=== PATIENT | female | born 2000 | race Caucasian/White ===

== ENCOUNTER → 2020-05-13 | Outpatient (CLI) | payer OTHER | LOC: COL.RAD 00:15 | DX: O00.202 Left ovarian pregnancy without intrauterine pregnancy (principal) ==

== ENCOUNTER 2024-01-29 01:45 | Inpatient (IN) | payer MEDICAID ==
[~2024-01-29] VITALS: Wt 77.7 kg
[2024-01-29] VITALS (45 sets, daily range): BP systolic 94–152; BP diastolic 55–95; PULSE 81–115; TEMP 98–99.1
[~2024-01-29 01:45] MED LIST: PRENATAL
--- NOTE | 2024-01-29 01:54 | NUR ---
Ambulatory to unit for labor assessment, accompanied by FOB and pt's mother. Pt reports "my water broke about an hour ago" Oriented to room, monitor, plan of care. SVE with +Amniotrace, free clear fuid, scan pink tinge noted on glove. -2 post.
[2024-01-29] MEDS ORDERED: LR & Oxytocin 500 ML IV SCH (02:45)
[2024-01-29] MEDS ORDERED: LR 1,000 ML IV PRN (02:45)
[2024-01-29] MEDS ORDERED: LR 1,000 ML IV SCH (02:45)
--- NOTE | 2024-01-29 03:25 | NUR ---
Off monitor, up to move around room, birthing ball provided.
[2024-01-29 03:34] LABS: BASO % 0.2 % (0.0-2.0); EOS # 0.1 K/mm3 (0.0-0.7); EOS % 0.9 % (0.0-4.0); GRAN # 6.2 K/mm3 (1.4-6.5); HEMOGLOBIN 11.6 g/dl (12.5-16.0); LYMPH # 2.2 K/mm3 (1.2-3.4); LYMPH % 21.8 % (20.0-51.0); MEAN CELL VOLUME 99 fl (80.0-100.0); MEAN CORPUSCULAR HEMOGLOBIN 35 pg (27-31); MEAN CORPUSCULAR HGB CONC 35 g/dl (33.0-37.0); MONO # 1.3 K/mm3 (0.1-0.6); PLATELET COUNT 242 K/mm3 (130-400); RED BLOOD COUNT 3.36 M/mm3 (4.10-5.30); REDCELL DISTRIBUTION WIDTH-CV 12.8 % (11.5-14.5)
[2024-01-29 03:36] LABS: HEMATOCRIT 33.4 % (37.0-47.0)
--- NOTE | 2024-01-29 04:40 | NUR ---
SVE with changes as noted. Pt reports "the contractions are little more pinchy". 0445 Off monitor for inttermittent monitoring
--- NOTE | 2024-01-29 06:24 | NUR ---
0621 Jose AUDIO VISUAL DESIGN ENGINEER updated that pt is requesting epidural at this time, G/P, hx, recent SVE, pt pain level. AUDIO VISUAL DESIGN ENGINEER states he will be bedside shortly.
--- NOTE | 2024-01-29 06:40 | NUR ---
PT REQUESTING EPIDURAL. IVFB STARTED
[2024-01-29] MEDS ORDERED: ROPivacaine PF 0.2% 200 ML IV ONE (07:00)
--- NOTE | 2024-01-29 08:04 | NUR ---
FILM COLOR TESTER AND RN BEDSIDE; PT TOLERATED PROCEDURE WELL.
--- NOTE | 2024-01-29 08:09 | NUR ---
PT UP TO VOID BEFORE EPIDURAL PLACEMENT. ANESTHESIA ARRIVES IN HOUSE.
--- NOTE | 2024-01-29 08:11 | NUR ---
ANESTHESIA BEDSIDE FOR EPIDURAL PLACEMENT. PT SITTING ON SIDE OF BED, RN X1 BEDSIDE.
--- NOTE | 2024-01-29 08:13 | NUR ---
PT SEMI FOWLERS WITH HIP WEDGE.
[2024-01-29] MEDS ORDERED: diphenhydrAMINE 50 MG/ML 1 ML VIAL IV PRN (09:00)
[2024-01-29] MEDS ORDERED: ePHEDrine 50 MG/10 ML VIAL IV PRN (09:00)
[2024-01-29] MEDS ORDERED: Ondansetron 4 MG/2 ML VIAL IV PRN (09:00)
[2024-01-29] MEDS ORDERED: diphenhydrAMINE 25 MG CAP PO PRN (09:00)
[2024-01-29] MEDS ORDERED: Naloxone 0.4 MG/ML VIAL IV PRN ×2 (09:00→17:00)
--- NOTE | 2024-01-29 11:18 | NUR ---
RN BEDSIDE ADJUSTING TOCO AND PALPATING ABDOMEN, HELPING PT WITH POSITION CHANGES
--- NOTE | 2024-01-29 11:56 | NUR ---
1150 BENNIE VIDES UPDATED ON RECENT SVE, CTX PATTERN, PITOCIN AT 2, FHTS. NO NEW ORDERS AT THIS TIME.
[2024-01-29] MEDS ORDERED: Loratadine 10 MG TAB PO PRN (16:30)
[2024-01-29] MEDS ORDERED: Magnes Hydrox (MOM) 80 MG/ML 30 ML CUP PO PRN (16:30)
--- NOTE | 2024-01-29 16:57 | NUR ---
ORDERS FROM BENNIE VIDES TO START PUSHING WITH PT. PT TO STIRRUJANIE AND RN BEDSIDE, EXPLAINING PUSHING PROCESS.
[2024-01-29] MEDS ORDERED: Tdap Vaccine 0.5 ML SYRINGE IM SCH (17:00)
[2024-01-29] MEDS ORDERED: Sennosides/Docusate 8.6-50 MG TAB PO SCH (17:00)
[2024-01-29] MEDS ORDERED: Acetaminophen 500 MG TAB PO SCH (17:00)
[2024-01-29] MEDS ORDERED: Measles/Mumps/Rubella Virus Vaccine Live w Diluent 0.5 ML VIAL SQ SCH (17:00)
[2024-01-29] MEDS ORDERED: Phenylephrine/Mineral Oil/Petrolatum 57 GM TUBE RC PRN (17:00)
[2024-01-29] MEDS ORDERED: oxyCODONE 5 MG TAB PO PRN (17:00)
[2024-01-29] MEDS ORDERED: Mag/Al Hydrox/Simeth Susp 30 ML CUP PO PRN (17:00)
[2024-01-29] MEDS ORDERED: Witch Hazel 50% Pads Bulk TUB TP PRN (17:00)
[2024-01-29] MEDS ORDERED: Ibuprofen 800 MG TAB PO SCH (17:00)
--- NOTE | 2024-01-29 17:09 | NUR ---
RN REMAINS BEDSIDE PUSHING WITH PT AND ASSESSING FHTS
--- NOTE | 2024-01-29 17:15 | NUR ---
BENNIE BEDSIDE DISCUSSING POC WITH PT. DELIVERY TEAM PAGED. VACUUM ASSISTED VAGINAL DELIVERY AT 1559 OF VIABLE MALE INFANT. MD AND RN X3 BEDSIDE DURING DELIVERY. PT TOLERATED WELL.
--- NOTE | 2024-01-29 18:15 | NUR ---
Pt eating dinner, denies nausea or discomfort. New deann-icepack applied labia swollen. Pt able to slightly move legs, not able to bend knees. Plan of care reviewed with pt and family that we would move to a new room when she was able to move legs and stand on her own.
--- NOTE | 2024-01-29 19:05 | NUR ---
Pt calls out stating "I have to pee" Upon nurse's entry into room, with 'Mary Ann Steady' pt sitting, barely, on very edge of bed. Bed in high position. Family holding pt up. Pt assisted onto 'Mary Ann Steady". Large amount of urine noted on floor. Into bathroom, voids large amount, performs own pericare. repositioned on 'mary ann steady'. Pt states "I'm feeling a little woozy" 2nd RN called in to assist, placed cold wash cloth on back of pt's neck and supports pt's back. Pt continues talking. Pt transferred quickly to room via 'mary ann steady". Pt positions self on bed. Pt and family informed pt not to get out of bed without my assistance. Pt and family verbalize understanding
[2024-01-29] MEDS ORDERED: traZODone 50 MG TAB PO PRN (21:00)
[2024-01-30 01:15] VITALS: BP 123/74; PULSE 93; TEMP 98.8
[2024-01-30 07:54] VITALS: BP 119/76; PULSE 87; TEMP 98.3
[2024-01-30] MEDS ORDERED: Influenza Virus Vaccine, Trivalent '24-25 0.5 ML SYRINGE IM SCH (09:00)
--- NOTE | 2024-01-30 09:44 | NUR ---
Initial visit; Parents thanked Rehab Trainer for offering congratulations and God's blessings for the of their son. Rehab Trainer thanked parents for choosing [facility].
[2024-01-30 16:00] VITALS: BP 126/67; PULSE 81
[2024-01-30 19:06] VITALS: BP 129/72; PULSE 100; TEMP 97.9
[2024-01-31] MEDS ORDERED: IBU800 M1 PO (06:47)
[2024-01-31] MEDS ORDERED: TYLENOL 500MG500 MG PO (06:47)
[2024-01-31] MEDS ORDERED: ROXICODONE 55 MG/TAB PO (06:47)
[2024-01-31 08:30] VITALS: BP 123/86; PULSE 96; TEMP 98
[2024-01-31] MEDS ORDERED: Influenza Virus Vaccine, Trivalent '24-25 0.5 ML SYRINGE IM ONE (15:15)
== END 2024-01-31 15:35 | disposition home or self-care (01) | DRG 807 ==
LOC: LDRO 01:45 → OB 02:30 → LDR 02:30 → OB 20:00
PROVIDERS: Obstetrics & Gynecology; ADMIT Obstetrics & Gynecology
PROC: 10D07Z6 Extraction of Products of Conception, Vacuum, Via Natural or Artificial Opening (ICD-10-PCS; principal; 2024-01-29)
PROC: 0KQM0ZZ Repair Perineum Muscle, Open Approach (ICD-10-PCS; 2024-01-29)
DX: O76 Abnormality in fetal heart rate and rhythm complicating labor and delivery (principal); Z37.0 Single live birth; O70.1 Second degree perineal laceration during delivery; Z3A.38 38 weeks gestation of pregnancy
CPT/HCPCS: J2590; J2795; J7120